=== PATIENT | male | born 1995 | race Caucasian/White ===

== ENCOUNTER 2018-06-21 08:25 | Emergency (ER) | payer SELFPAY ==
[~2018-06-21] VITALS: Ht 177.8 cm; Wt 136.5 kg
[2018-06-21 08:27] VITALS: BP 150/108
[2018-06-21] MEDS ORDERED: ACETAMINOPHEN 500 MG TABLET ONE (08:51)
[2018-06-21] MEDS ORDERED: ACETAMINOPHEN 500 MG TABLET PO ONE (09:00)
== END 2018-06-21 09:22 | disposition home or self-care (01) ==
LOC: ED 09:16
DX: S90.31XA Contusion of right foot, initial encounter (principal); W54.1XXA Struck by dog, initial encounter; Y93.89 Activity, other specified; Y92.89 Other specified places as the place of occurrence of the external cause; Y99.8 Other external cause status
CPT/HCPCS: 99284

== ENCOUNTER 2018-06-26 01:05 | Emergency (ER) | payer SELFPAY ==
[~2018-06-26] VITALS: Ht 177.8 cm; Wt 140.0 kg
[2018-06-26] MEDS ORDERED: HYDROcodone/APAP 5/325 TABLET ONE (01:27)
[2018-06-26] MEDS ORDERED: HYDROcodone/APAP 5/325 TABLET PO ONE (01:30)
[2018-06-26 03:06] VITALS: BP 145/95
== END 2018-06-26 03:08 | disposition home or self-care (01) ==
LOC: ED 01:53
DX: S90.31XA Contusion of right foot, initial encounter (principal); W22.09XA Striking against other stationary object, initial encounter; Y93.89 Activity, other specified; Y99.8 Other external cause status; Y92.009 Unspecified place in unspecified non-institutional (private) residence as the place of occurrence of the external cause
CPT/HCPCS: 99284